=== PATIENT | female | born 1955 | race Caucasian/White ===

== ENCOUNTER 2016-09-11 11:39 | Emergency (ER) | payer BC ==
[2016-09-11 13:01] VITALS: BP 162/100
--- NOTE | 2016-09-11 13:05 | EDM.PDOC ---
ED HISTORY OF PRESENT ILLNESS - General Chief Complaint: Cardiovascular Problem Stated Complaint: CHEST PRESSURE Time Seen by Provider: 09/11/16 11:50 Source of Information: Reports: Patient History Limitations: Reports: No limitations - History of Present Illness INITIAL COMMENTS - FREE TEXT/NARRATIVE: Patient reports right sided chest pressure for the last week or so. It does not worsen with activity, she is not short of breath, she did in fact walk 8 miles on Sunday. PCP reports borderline HTN. Systolic blood pressure here is over 170. She does have a history of anxiety attack. Relatively healthy. No LA, Stroke, cancer, some elevated cholesterol. She really has no other complaints. No painful radiation to other areas, no smoking, no drinking, no drug use. Takes multivitamins and simvastatin. Symptom Onset Date: 09/04/16 Timing/Duration: Reports: Constant, Gradual onset Severity: mild Location, General: Reports: chest Quality: Reports: Pressure Improves with: Reports: None Worsens with: Reports: None Associated Symptoms (General): Reports: no other symptoms - Related Data Allergies/ADRs: Allergies Allergy/AdvReac Type Severity Reaction Status Date / Time codeine Allergy Rash Verified 09/11/16 11:59 Home Meds: Home Meds Estradiol [Vivelle-Dot] 1 patch TOP WEEKLY 10/21/14 [History] Ipratropium [Atrovent 0.03% Nasal [place]] 1 spray NASBOTH TID PRN 10/21/14 [ History] Simvastatin [Zocor] 1 tab PO BEDTIME 10/21/14 [History] Past Medical History Cardiovascular History: Reports: High cholesterol Social & Family History - Tobacco Use Smoking Status *Q: Never Smoker - Alcohol Use Days Per Week of Alcohol Use: 0 Number of Drinks Per Day: 0 Total Drinks Per Week: 0 - Recreational Drug Use Recreational Drug Use: No Drug Use in Last 12 Months: No ED ROS GENERAL - Review of Systems Review Of Systems: ROS reveals no pertinent complaints other than HPI. ED EXAM, GENERAL - Physical Exam Exam: See Below Exam Limited By: No limitations General Appearance: alert, WD/WN, no apparent distress Eye Exam: bilateral eye: EOMI, PERRL Ears: normal TMs Throat/Mouth: Normal inspection, Normal oropharynx, No airway compromise Head: atraumatic, normocephalic Neck: normal inspection Respiratory/Chest: no respiratory distress, no accessory muscle use, crackles ( right lower lobe - minimal) Cardiovascular: normal peripheral pulses, regular rate, rhythm, no edema Peripheral Pulses: 2+: posterior tibial (L), posterior tibial (R), dorsalis pedis (L), dorsalis pedis (R) GI/Abdominal: normal bowel sounds, soft, non tender, no organomegaly Back Exam: normal inspection Extremities: normal inspection, normal range of motion, non-tender, no pedal edema, normal capillary refill Neurological: alert, oriented, CN II-XII intact, normal cognition, normal gait, normal reflexes, no motor/sensory deficits Psychiatric: normal affect, normal mood Skin Exam: Warm, Dry, Intact, Normal color Lymphatic: no adenopathy Course - Vital Signs Last Recorded V/S: Last Vital Signs Temp 37.3 C 09/11/16 11:55 Pulse 80 09/11/16 13:01 Resp 16 09/11/16 11:55 BP 162/100 H 09/11/16 13:01 Pulse Ox 96 09/11/16 11:55 - Orders/Labs/Meds Orders: Active Orders 24 hr Category Date Time Status Chest 2V [CR] Stat Exams 09/11/16 12:19 Taken Labs: Laboratory Tests 09/11/16 09/11/16 09/11/16 Range/Units 12:41 12:41 12:41 WBC 5.5 (4.0-10.0) x10^3/uL RBC 4.69 (4.00-5.50) x10^6/uL Hgb 13.9 (12.0-16.0) g/dL Hct 42.1 (33.0-47.0) % MCV 89.8 (78.0-93.0) fL MCH 29.6 (26.0-32.0) pg MCHC 33.0 (32.0-36.0) g/dL RDW Coeff of Yusra 13.7 (10.0-15.0) % Plt Count 255 (130-400) x10^3/uL Neut % (Auto) 66.2 (50.0-80.0) % Lymph % (Auto) 22.1 L (25.0-50.0) % [place] % (Auto) 9.3 (2.0-11.0) % Eos % (Auto) 2.0 (0.0-4.0) % Baso % (Auto) 0.4 (0.2-1.2) % PT (10.0-12.8) SEC INR (2.0-3.5) D-Dimer, Quantitative 0.49 (<=0.58) mg/LFEU Sodium 143 (136-145) mmol/L Potassium 3.9 (3.5-5.1) mmol/L Chloride 105 (98-107) mmol/L Carbon Dioxide 30 (21-32) mmol/L BUN 16 (7-18) mg/dL Creatinine 0.8 (0.55-1.02) mg/dL Est Cr Clr Drug Dosing 66.45 mL/min Estimated GFR (MDRD) > 60 Glucose 100 (74-106) mg/dL Calcium 9.0 (8.5-10.1) mg/dL Corrected Calcium 9.00 (8.5-10.1) mg/dL Total Bilirubin 0.3 (0.2-1.0) mg/dL AST 19 (15-37) U/L ALT 30 (14-59) U/L Alkaline Phosphatase 83 (46-116) U/L Creatine Kinase 102 (26-192) U/L Creatine Kinase Index 0.5 (0.0-4.0) % CK-MB (CK-2) < 0.5 (0.0-3.6) ng/mL Troponin I < 0.017 (<=0.056) ng/mL B-Natriuretic Peptide 194 H (<=125) pg/mL Total Protein 7.1 (6.4-8.2) g/dL Albumin 4.0 (3.4-5.0) g/dL Globulin 3.1 Albumin/Globulin Ratio 1.29 TSH, Ultra Sensitive (0.358-3.74) uIU/mL 09/11/16 09/11/16 Range/Units 12:41 12:41 WBC (4.0-10.0) x10^3/uL RBC (4.00-5.50) x10^6/uL Hgb (12.0-16.0) g/dL Hct (33.0-47.0) % MCV (78.0-93.0) fL MCH (26.0-32.0) pg MCHC (32.0-36.0) g/dL RDW Coeff of Yusra (10.0-15.0) % Plt Count (130-400) x10^3/uL Neut % (Auto) (50.0-80.0) % Lymph % (Auto) (25.0-50.0) % [place] % (Auto) (2.0-11.0) % Eos % (Auto) (0.0-4.0) % Baso % (Auto) (0.2-1.2) % PT 9.9 L (10.0-12.8) SEC INR 0.9 L (2.0-3.5) D-Dimer, Quantitative (<=0.58) mg/LFEU Sodium (136-145) mmol/L Potassium (3.5-5.1) mmol/L Chloride (98-107) mmol/L Carbon Dioxide (21-32) mmol/L BUN (7-18) mg/dL Creatinine (0.55-1.02) mg/dL Est Cr Clr Drug Dosing mL/min Estimated GFR (MDRD) Glucose (74-106) mg/dL Calcium (8.5-10.1) mg/dL Corrected Calcium (8.5-10.1) mg/dL Total Bilirubin (0.2-1.0) mg/dL AST (15-37) U/L ALT (14-59) U/L Alkaline Phosphatase (46-116) U/L Creatine Kinase (26-192) U/L Creatine Kinase Index (0.0-4.0) % CK-MB (CK-2) (0.0-3.6) ng/mL Troponin I (<=0.056) ng/mL B-Natriuretic Peptide (<=125) pg/mL Total Protein (6.4-8.2) g/dL Albumin (3.4-5.0) g/dL Globulin Albumin/Globulin Ratio TSH, Ultra Sensitive 2.434 (0.358-3.74) uIU/mL Departure - Departure Time of Disposition: 14:20 Disposition: Home, Self-Care 01 Condition: good Clinical Impression: Hypertension, Chest pain of uncertain etiology Instructions: Hypertension, [id number] Referrals: Moni Tineo MD [Primary Care Provider] - Forms: ED Department Discharge Additional Instructions: I am going to start you on Lisinopril 10 mg daily. Please take this until you see Dr. Tineo and discuss with her whether she would like you to continue. Some side effects include a chronic, dry hacking cough with no sputum production ; contact your medical provider if this occurs. Angioedema which is a swelling of the face and neck may also occur. If this happens make sure to come in to be seen to protect your airway. Your cardiac tests were normal, as was the blood test that we use to rule out a blood clot in the lung. I will call you with any findings from your chest x- ray. Make sure you are properly hydrated; especially if you are going to be out hiking If you have any worsening of symptoms or have any other questions or concerns please call or return to the emergency room - Problem List Review Problem List Initiated/Reviewed/Updated: Yes - My Orders Last 24 Hours: My Active Orders 09/11/16 12:19 Chest 2V [CR] Stat - Assessment/Plan Last 24 Hours: My Active Orders 09/11/16 12:19 Chest 2V [CR] Stat Assessment:: hypertension Plan: I am going to start you on Lisinopril 10 mg daily. Please take this until you see Dr. Tineo and discuss with her whether she would like you to continue. Some side effects include a chronic, dry hacking cough with no sputum production ; contact your medical provider if this occurs. Angioedema which is a swelling of the face and neck may also occur. If this happens make sure to come in to be seen to protect your airway. Your cardiac tests were normal, as was the blood test that we use to rule out a blood clot in the lung. I will call you with any findings from your chest x- ray. Make sure you are properly hydrated; especially if you are going to be out hiking If you have any worsening of symptoms or have any other questions or concerns please call or return to the emergency room
[2016-09-11 13:19] LABS: CHLORIDE,CL 105 mmol/L (98-107); SODIUM,NA 143 mmol/L (136-145)
== END 2016-09-11 14:20 | disposition home or self-care (01) ==
LOC: VM.ED 11:39
DX: I10 Essential (primary) hypertension (principal); E78.00 Pure hypercholesterolemia, unspecified; Z88.5 Allergy status to narcotic agent
CPT/HCPCS: 36415; 71020; 80053; 82550; 82553; 83880; 84443; 84484; 85025; 85379; 85610; 99285

== ENCOUNTER 2017-11-13 06:23 | Day surgery (SDC) | payer BC ==
[~2017-11-13 06:23] MED LIST: Lactated Ringers 1,000 ML IV SCH
[2017-11-13] MEDS ORDERED: Propofol 200 MG/20 ML SDV ONE (07:46)
[2017-11-13] MEDS ORDERED: fentaNYL 100 MCG/2 ML SDV ONE (07:46)
[2017-11-13 09:09] VITALS: BP 123/81
--- NOTE | 2017-11-13 15:03 | OR ---
PREOPERATIVE DIAGNOSIS: Intermittent rectal bleeding. POSTOPERATIVE DIAGNOSIS: Normal colonoscopic and anal exam. PROCEDURE PROPOSED: Diagnostic total flexible colonoscopy. PROCEDURE DONE: Diagnostic total flexible colonoscopy. INDICATION: This is a 62-year-old female, who has been having some intermittent bright red blood per rectum. She has had 3 episodes in the past year of a significant amount of blood that lasts for about a day and a half. She denies any pain, but she also has a family history of polyps, but no family history of colon cancer. She comes in now for recommended colonoscopy. She did have one done approximately 4 years ago with no abnormal findings. TECHNIQUE: The patient was brought to the endoscopy suite, placed in left lateral decubitus position. She was sedated per [employer] with propofol. The flexible video colonoscope was then passed transanally and under visualization advanced to the cecum. Examination revealed normal ascending, transverse, descending, sigmoid, and rectal colon. There was no evidence of any colitis, polyps, diverticulosis, or any other abnormality. The anal exam also did not reveal any significant hemorrhoids. There were no signs of any blood or abnormality in the anal area. The scope was then withdrawn. She tolerated the procedure well. FINAL IMPRESSION: Essentially normal colonoscopic and anal exam. PLAN: I suspect that she is intermittently rupturing a blood vessel in anal area. She does feel it is somewhat related to constipation and she may be having a hard stool at the time that the bleeding occurs. I do not feel there is any need for concern. There is no abnormal findings. I do not feel she needs any suppositories at this point, and I feel that we just need to keep an eye on the situation, and I feel that she should consider with a family history of polyps to have a colonoscopy done every 5 years hereafter. SCM: 11/13/2017 08:18:26 MODL: 11/13/2017 14:33:56 /[id number]
== END 2017-11-13 09:48 | disposition home or self-care (01) ==
LOC: VM.SDS 06:23
PROVIDERS: ATTEND Surgery
DX: K62.5 Hemorrhage of anus and rectum (principal); I10 Essential (primary) hypertension; J32.9 Chronic sinusitis, unspecified; E78.00 Pure hypercholesterolemia, unspecified; E55.9 Vitamin D deficiency, unspecified; Z79.899 Other long term (current) drug therapy; Z83.71 Family history of colonic polyps; Z88.5 Allergy status to narcotic agent; Z90.49 Acquired absence of other specified parts of digestive tract; Z90.710 Acquired absence of both cervix and uterus; Z90.89 Acquired absence of other organs; Z98.890 Other specified postprocedural states
CPT/HCPCS: 45378; J2704; J3010; J7120

== ENCOUNTER 2023-05-25 08:21 | Day surgery (SDC) | payer MEDICARE, BC ==
[2023-05-25] MEDS ORDERED: fentaNYL 100 MCG/2 ML SDV ONE (10:18)
[2023-05-25] MEDS ORDERED: Propofol 200 MG/20 ML SDV ONE (10:18)
[2023-05-25 11:42] VITALS: BP 106/55; PULSE 74
[2023-06-22] MEDS ORDERED: Lactated Ringers 1,000 ML IV SCH (07:00)
== END 2023-05-25 12:03 | disposition home or self-care (01) ==
LOC: VM.SDS 08:21
PROVIDERS: ATTEND Student in an Organized Health Care Education/Training Program
DX: D12.0 Benign neoplasm of cecum (principal); D12.2 Benign neoplasm of ascending colon; I10 Essential (primary) hypertension; E78.00 Pure hypercholesterolemia, unspecified; E55.9 Vitamin D deficiency, unspecified; R73.9 Hyperglycemia, unspecified; M85.80 Other specified disorders of bone density and structure, unspecified site; J32.9 Chronic sinusitis, unspecified; Z79.899 Other long term (current) drug therapy
CPT/HCPCS: 00812; 88305; J2704; J3010; J7120